=== PATIENT | female | born 1985 | race Caucasian/White ===

== ENCOUNTER 2017-01-30 08:51 | Emergency (ER) | payer MEDICAID ==
--- NOTE | 2017-01-30 09:33 | EDM.PDOC ---
[id number] Provider: 01/30/17 08:51 Source of Information: Reports: Patient, Family History Limitations: Reports: No limitations - History of Present Illness INITIAL COMMENTS - FREE TEXT/NARRATIVE: 31 y.o.w.f came to the with her mom due to anxiety. Pt has a h/o Thyroid CA, S/ P Thyroidectomy, currently on Thyroxin. Pt was seen at the [facility] yesterday for same. She called the clinic today and was asked to be seen here in the ed. Onset Date: 01/29/17 Onset Time: 07:00 Duration: Day(s):, Intermittent Location: Reports: generalized Quality: Reports: Other Severity: mild Improves with: Reports: None Worsens with: Reports: None Associated Symptoms: Reports: denies other symptoms, loss of appetite hands Pain Score (Numeric/FACES): 5 - Related Data Allergies Allergy/AdvReac Type Severity Reaction Status Date / Time No Known Allergies Allergy Verified 01/30/17 10:46 Home Meds: Home Meds LORazepam 1 mg PO TID 01/30/17 [History] Levothyroxine 150 mcg PO ACBREAKFAST 01/30/17 [History] Prazosin [Minpress] 1 mg PO DAILY 01/30/17 [History] ED ROS GENERAL - Review of Systems Review Of Systems: See Below Constitutional: Reports: no symptoms HEENT: Reports: No symptoms Respiratory: Reports: No Symptoms Cardiovascular: Reports: No symptoms, Palpitations Endocrine: Reports: no symptoms GI/Abdominal: Reports: No symptoms : Reports: no symptoms Musculoskeletal: Reports: no symptoms Skin: Reports: no symptoms Neurological: Reports: No Symptoms Psychiatric: Reports: Anxiety Hematologic/Lymphatic: Reports: no symptoms Immunologic: Reports: no symptoms ED EXAM, GENERAL - Physical Exam Exam: See Below Exam Limited By: No limitations General Appearance: alert, anxious Eye Exam: bilateral eye: normal inspection Ears: normal external exam, normal canal Ear Exam: bilateral ear: auricle normal Nose: normal inspection, normal mucosa, no blood Throat/Mouth: Normal inspection, Normal lips, Normal teeth, Normal gums, Normal oropharynx, Normal voice, No airway compromise Head: atraumatic, normocephalic Neck: normal inspection, supple, non-tender Respiratory/Chest: no respiratory distress, lungs clear, normal breath sounds, no accessory muscle use, chest non-tender Cardiovascular: no edema, no JVD, no murmur, no rub, tachycardia Peripheral Pulses: 3+: femoral (L), femoral (R) GI/Abdominal: normal bowel sounds, soft, non tender (Female) Exam: Deferred Rectal (Female) Exam: Deferred Back Exam: normal inspection, full range of motion Extremities: normal inspection, normal range of motion, non-tender, no pedal edema Neurological: alert, oriented, CN II-XII intact, normal cognition, normal gait Psychiatric: anxious Skin Exam: Warm, Dry, Intact, Normal color, No rash Lymphatic: no adenopathy Course - Vital Signs Text/Narrative:: 31 y.o.w.f came to the with her mom due to anxiety. Pt has a h/o Thyroid CA, S/ P Thyroidectomy, currently on Thyroxin. Pt was seen at the [facility] yesterday for same. She called the clinic today and was asked to be seen here in the ed. Last Recorded V/S: Last Vital Signs Temp 36.6 C 01/30/17 09:00 Pulse 98 01/30/17 10:56 Resp 18 01/30/17 10:56 BP 128/86 01/30/17 10:56 Pulse Ox 99 01/30/17 10:56 - Orders/Labs/Meds Labs: Laboratory Tests 01/30/17 01/30/17 01/30/17 Range/Units 09:30 09:30 09:30 WBC 7.4 (4.5-12.0) X10-3/uL RBC 4.53 (3.23-5.20) x10(6)uL Hgb 12.6 (11.5-15.5) g/dL Hct 37.7 (30.0-51.3) % MCV 83.3 (80-96) fL MCH 27.9 (27.7-33.6) pg MCHC 33.5 (32.2-35.4) g/dL RDW 12.9 (11.5-15.5) % Plt Count 338 (125-369) X10(3)uL MPV 7.3 L (7.4-10.4) fL Neut % (Auto) 65.3 (46-82) % Lymph % (Auto) 23.3 (13-37) % Dade % (Auto) 6.0 (4-12) % Eos % (Auto) 5 (1.0-5.0) % Baso % (Auto) 1 (0-2) % Neut # (Auto) 4.9 (1.6-8.3) # Lymph # (Auto) 1.7 (0.6-5.0) # Dade # (Auto) 0.4 (0.0-1.3) # Eos # (Auto) 0.3 (0.0-0.8) # Baso # (Auto) 0.1 (0.0-0.2) # Sodium 135 (135-145) mmol/L Potassium 3.8 (3.5-5.3) mmol/L Chloride 101 (100-110) mmol/L Carbon Dioxide 27 (23-29) mmol/L BUN 9 (5-20) mg/dL Creatinine 0.7 (0.6-1.3) mg/dL Est Cr Clr Drug Dosing TNP Estimated GFR (MDRD) > 60 (>60) BUN/Creatinine Ratio 12.9 (9-20) Glucose 104 (80-116) mg/dL Calcium 9.1 (8.6-10.2) mg/dL TSH, Ultra Sensitive 0.52 (0.4-5.5) nlU/mL Urine HCG, Qual (NEGATIVE) Urine Opiates Screen (NEGATIVE) Ur Oxycodone Screen (NEGATIVE) Ur Propoxyphene Screen (NEGATIVE) Ur Barbituates Screen (NEGATIVE) Ur Tricyclics Screen (NEGATIVE) Ur Phencyclidine Scrn (NEGATIVE) Ur Amphetamine Screen (NEGATIVE) Urine MDMA Screen (NEGATIVE) U Benzodiazepines Scrn (NEGATIVE) U Cocaine Metab Screen (NEGATIVE) U Marijuana (THC) Screen (NEGATIVE) 01/30/17 01/30/17 Range/Units 10:01 10:01 WBC (4.5-12.0) X10-3/uL RBC (3.23-5.20) x10(6)uL Hgb (11.5-15.5) g/dL Hct (30.0-51.3) % MCV (80-96) fL MCH (27.7-33.6) pg MCHC (32.2-35.4) g/dL RDW (11.5-15.5) % Plt Count (125-369) X10(3)uL MPV (7.4-10.4) fL Neut % (Auto) (46-82) % Lymph % (Auto) (13-37) % Dade % (Auto) (4-12) % Eos % (Auto) (1.0-5.0) % Baso % (Auto) (0-2) % Neut # (Auto) (1.6-8.3) # Lymph # (Auto) (0.6-5.0) # Dade # (Auto) (0.0-1.3) # Eos # (Auto) (0.0-0.8) # Baso # (Auto) (0.0-0.2) # Sodium (135-145) mmol/L Potassium (3.5-5.3) mmol/L Chloride (100-110) mmol/L Carbon Dioxide (23-29) mmol/L BUN (5-20) mg/dL Creatinine (0.6-1.3) mg/dL Est Cr Clr Drug Dosing Estimated GFR (MDRD) (>60) BUN/Creatinine Ratio (9-20) Glucose (80-116) mg/dL Calcium (8.6-10.2) mg/dL TSH, Ultra Sensitive (0.4-5.5) nlU/mL Urine HCG, Qual Negative (NEGATIVE) Urine Opiates Screen Negative (NEGATIVE) Ur Oxycodone Screen Negative (NEGATIVE) Ur Propoxyphene Screen Negative (NEGATIVE) Ur Barbituates Screen Negative (NEGATIVE) Ur Tricyclics Screen Negative (NEGATIVE) Ur Phencyclidine Scrn Negative (NEGATIVE) Ur Amphetamine Screen Positive H (NEGATIVE) Urine MDMA Screen Negative (NEGATIVE) U Benzodiazepines Scrn Negative (NEGATIVE) U Cocaine Metab Screen Negative (NEGATIVE) U Marijuana (THC) Screen Negative (NEGATIVE) Departure - Departure Time of Disposition: 11:04 Disposition: Home, Self-Care 01 Condition: good Clinical Impression: Amphetamine abuse, Anxiety Referrals: Raffy Cutler MD [Primary Care Provider] - Forms: ED Department Discharge Additional Instructions: please refrain from any drugs, please consult your PMD/winding 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
[2017-01-30 19:16] VITALS: BP 128/86
== END 2017-01-30 11:20 | disposition home or self-care (01) ==
LOC: FB.ED 08:51
DX: F41.9 Anxiety disorder, unspecified (principal); F15.10 Other stimulant abuse, uncomplicated
CPT/HCPCS: 36415; 80048; 80305; 81025; 84443; 85025; 99283

== ENCOUNTER 2017-11-27 10:11 | Emergency (ER) | payer MEDICAID, OTHER, SELFPAY ==
[2017-11-27 10:57] VITALS: BP 132/75
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
== END 2017-11-27 11:14 | disposition left against medical advice (07) ==
LOC: FB.ED 10:11
DX: Z53.21 Procedure and treatment not carried out due to patient leaving prior to being seen by health care provider (principal)
CPT/HCPCS: 99282

== ENCOUNTER 2018-04-11 10:05 | Emergency (ER) | payer MEDICAID ==
[2018-04-11 13:27] VITALS: BP 116/62
--- NOTE | 2018-04-11 16:44 | ER ---
DATE SEEN: 04/11/2018 TIME SEEN: The patient was seen at 1015 hours in the morning. /[id number] LEO/KRYSTINA
--- NOTE | 2018-04-12 11:42 | CR ---
INDICATION: Dysrhythmia, thyroid cancer extirpation. CHEST: PA and lateral views of the chest revealed the heart to be normal in size and shape. Mediastinum was unremarkable. A mild dextroconcave scoliosis of the lower thoracic spine is noted. An active infiltrate or effusion was not identified. No findings to suggest metastatic disease were identified. IMPRESSION: No acute process. No evidence of metastatic disease. MTDD
--- NOTE | 2018-04-14 10:57 | ER ---
DATE SEEN: 04/11/2018 HISTORY OF PRESENT ILLNESS: This 32-year-old 1, para 1 single woman, comes in with her mother because she has had a history of, on and off, hot and cold flashes. She is status post previous thyroidectomy for thyroid cancer, is hypothyroid, currently on thyroid medicine. Last menstrual period was 1 year ago. She is on a Mirena ring. She has been slated to go to care home for 5 years because of car thefts and drug abuse and selling. She will see a tug boat engineer tomorrow in the courtroom. She has become depressed. She is not suicidal. She does not feel helpless and hopeless, but concentration is poor. She is depressed, sad, and weight has not changed. She has difficulty sleeping and has anxiety and had a diagnosis of amphetamine abuse, 01/30/2017. As of October, she was homeless because of her street life and excessive drug abuse, including the crimes of car theft and selling drugs, and she was apprehended by the police. REVIEW OF SYSTEMS: SKIN: She has mild photosensitivity. HEENT: Otherwise negative. She has mild sore throat. No cough. She smokes. She notes she has a bulging neck disk. Her mother and patient note she has ups and downs in her voice, increases in tempo and excitement and also depression, laid back and not very communicative and voice changes. She has mild shortness of breath. : She has no history of STDs. She has been tested for this. MUSCULOSKELETAL: She has mild knee discomfort. Mother has rheumatoid arthritis. The patient has been tested negative. FAMILY HISTORY: Father had leukemia, at age 37. One sister is alive and well. Paternal grandfather is alive and well. Paternal grandmother has schizophrenia and delusions, hallucinations. Paternal aunt has psychiatric illness. Maternal grandmother has dementia and Alzheimer's. Paternal grandfather has heart disease. Regarding the [place] [facility] SIGE CAPS depression scale, S: Patient is not suicidal; I: Patient does not feel helpless and hopeless; G: Guilt, sometimes off and on; C: Concentration is abnormal; A: Anxiety is increased; P: Psychomotor increase or decrease in activity. The patient notes it is variable. She has panic disorder, posttraumatic stress disorder, and has depression, sometimes becomes manic, sometimes depressive with increased activity and decreased activity, it is variable, often being in the same day, and sad, yes. Homicidal, no. Does not see delusions. Does not see or hear things that do not exist - does not have hallucinations. SOCIAL HISTORY: The patient smokes. She does not drink alcohol. No longer uses amphetamines as of October,. She feels hot and cold. Does not have sweating spells but has variability in her animation throughout the day. CURRENT MEDICATIONS: Levothyroxine 150 mcg daily per prescription by Dr. Banks, wall covering contractor, at [facility]. ALLERGIES: None. PHYSICAL EXAMINATION: VITAL SIGNS: Pulse is 70 and regular, blood pressure 116/74, respirations 17, oxygen saturation 100% on room air, temperature 36.8 degrees centigrade. Weight is 58.96 kg, which is 21.21 kg/sq. m. BMI. CONSTITUTION: Patient is somewhat wary, anxious, quiet, soft-spoken, and wary with her eyes. Somewhat mistrusting or uncertain. HEENT: PERRLA intact. Eyegrounds normal appearance. Pharynx without abnormality. Teeth are in good condition. Apparently, she has had several teeth removed in the past. No thyromegaly in the neck. I do not feel any masses. I do not feel cervical adenopathy. I do not feel supraclavicular adenopathy. LUNGS: Clear without rales, rhonchi, or wheezes. HEART: S1, S2. No murmur. No irregular rate or rhythm. ABDOMEN: Soft. No guarding. No abdominal discomfort. Bowel sounds normal. EXTREMITIES: Normal. No evidence for new erythema on the forearms. Nail cap refill is good. NEUROLOGICAL: Oriented x3. Gait appropriate and muscle strength in upper and lower extremities good. WORKING DIAGNOSES: 1. Rule out chemical abuse. 2. Rule out manic depressionanic pressantin tempor . 3. Rule out thyroid abnormality, either subacute thyroiditis because she has swings of being animated, not animated, increased activity, decreased activity, and voice changes, and heart rate changes. Currently, she is being followed by Dr. Banks and has had a thyroid scan in the past. One thyroid scan was abnormal, one followup scan was normal, so it is indeterminate if there is a need for another thyroid scan (radioactive thyroid scan). Today's TSH is low. It could be low to secondary reasons. a. It could be something like overactive pituitary. b. It could be low secondary to taking high doses of Synthroid. c. It could be low because she has increased free T4 and T3. Those tests are pending. 4. Also she has the stress of depression and anxiety of her care home sentence facing her for 5 years, when she sees the tug boat engineer tomorrow, so she may be depressed, not suicidal today. 5. She has a loving mother, supportive of her. 6. She has posttraumatic stress depression syndrome. 7. Chest x-ray is normal, except for mild hyperaeration. Hyperaeration almost goes down to 11th ribs with inspiration. This may be useful inspiration, so it may not be abnormal, as she has curved diaphragms that are not flattened, but there is mild hyperaeration, reflects possibly some chronic obstructive pulmonary disease. Heart size is small. 8. It is possible the patient may be having adrenal abnormalities because of thyroid. There is no suggestion of CREST. 9. Mother has rheumatoid arthritis. Patient does not have rheumatoid arthritis. DIAGNOSIS: 1) Bipolar depression 2) anxiety 3) PTSD HX Anxiety secondary to facing tug boat engineer to be sentenced 5 he year in care home. The patient to have a 1600 hours cortisol and also free T4 and T3. If these are abnormal, then discuss with Dr. Banks. If I am not here for the results of these tests, give them to Dr. Pace to follow up, (if the tests are send outs). No medications were prescribed for the patient presently. She felt comfortable with this process and is leading the discussion about the stressors and the perils that she has experienced in her life. /[id number] LEO/KRYSTINA LOPEZ
== END 2018-04-11 13:26 | disposition home or self-care (01) ==
LOC: FB.ED 10:05
DX: F31.9 Bipolar disorder, unspecified (principal); F41.9 Anxiety disorder, unspecified; F43.10 Post-traumatic stress disorder, unspecified; Z79.899 Other long term (current) drug therapy
CPT/HCPCS: 36415; 71046; 80053; 80305; 81001; 81025; 82533; 83605; 84439; 84443; 84481; 84484; 85025; 93005; 99284

== ENCOUNTER 2018-07-06 13:04 | Emergency (ER) | payer MEDICAID ==
[2018-07-06 14:11] LABS: ACETAMINOPHEN < 2 ug/mL (10-30)
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
[2018-07-06] MEDS: LORazepam 2 MG/ML SDV IM ONE (15:05)
[2018-07-06 16:15] VITALS: BP 114/81
== END 2018-07-06 15:42 | disposition home or self-care (01) ==
LOC: FB.ED 13:04
DX: F41.9 Anxiety disorder, unspecified (principal); F17.210 Nicotine dependence, cigarettes, uncomplicated; Z79.899 Other long term (current) drug therapy
CPT/HCPCS: 36415; 80053; 80305; 84443; 84702; 85025; 96374; 99283; G0480; J2060

== ENCOUNTER 2018-07-08 13:18 | Emergency (ER) | payer MEDICAID ==
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
[2018-07-08 21:59] VITALS: BP 124/81
== END 2018-07-09 13:05 ==
LOC: FB.ED 13:18
DX: F22 Delusional disorders (principal); E03.9 Hypothyroidism, unspecified; Z79.899 Other long term (current) drug therapy; Z59.0 Homelessness
CPT/HCPCS: 36415; 80048; 80305-QW; 84443; 85025; 99285; G0480

== ENCOUNTER 2019-05-29 10:49 | Emergency (ER) | payer MEDICAID ==
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
[2019-05-29 12:24] VITALS: BP 110/70; PULSE 67
== END 2019-05-29 11:50 | disposition home or self-care (01) ==
LOC: FB.ED 10:49
DX: J02.9 Acute pharyngitis, unspecified (principal); E03.9 Hypothyroidism, unspecified; Z79.899 Other long term (current) drug therapy
CPT/HCPCS: 99282

== ENCOUNTER 2023-05-20 06:12 | Day surgery (SDC) | payer OTHER, MEDICAID ==
[2023-05-20] MEDS ORDERED: Midazolam 1 MG/ML 2 ML SDV IV ONE (06:13)
[2023-05-20] MEDS ORDERED: Propofol 200 MG/20 ML SDV IV ONE (06:13)
[2023-05-20] MEDS ORDERED: Lidocaine 2% 5 ML SDV IV ONE (06:13)
[2023-05-20] MEDS ORDERED: Sodium Chloride 0.9% 10 ML Syringe FLUSH PRN (06:15)
[2023-05-20] MEDS ORDERED: Lactated Ringers 1,000 ML IV SCH (06:15)
[2023-05-20] MEDS ORDERED: Simethicone Drops 40 MG/0.6 ML 30 ML Bottle PO ONE (07:42)
[2023-05-20 09:00] VITALS: BP 103/74; PULSE 68
[2023-05-22 00:12] LABS: ADENOVIRUS F 40/41 Not Detected (Not Detected); ASTROVIRUS Not Detected (Not Detected); C DIFFICILE TOXIN A/B Not Detected (Not Detected); CAMPYLOBACTER Not Detected (Not Detected); CRYPTOSPORIDIUM Not Detected (Not Detected); CYCLOSPORA CAYETANENSIS Not Detected (Not Detected); ENTAMOEBA HISTOLYTICA Not Detected (Not Detected); ENTEROAGGREGATIVE E COLI Not Detected (Not Detected); ENTEROPATHOGENIC E COLI Not Detected (Not Detected); ENTEROTOXIGENIC E COLI Not Detected (Not Detected); GIARDIA LAMBLIA Not Detected (Not Detected); NOROVIRUS GI/GII Not Detected (Not Detected); PLESIOMONAS SHIGELLOIDES Not Detected (Not Detected); ROTAVIRUS A Not Detected (Not Detected); SALMONELLA Not Detected (Not Detected); SAPOVIRUS Not Detected (Not Detected); SHIGA-TOXIN-PRODUCING E COLI Not Detected (Not Detected); SHIGELLA/ENTEROINVASIVE E COLI Not Detected (Not Detected); VIBRIO Not Detected (Not Detected); VIBRIO CHOLERAE Not Detected (Not Detected); YERSINIA ENTEROCOLITICA Not Detected (Not Detected)
== END 2023-05-20 09:08 | disposition home or self-care (01) ==
LOC: FB.SDS 06:12
PROVIDERS: ATTEND Surgery
DX: K52.9 Noninfective gastroenteritis and colitis, unspecified (principal); K63.89 Other specified diseases of intestine; R63.4 Abnormal weight loss; F41.1 Generalized anxiety disorder; F41.0 Panic disorder [episodic paroxysmal anxiety]; G43.909 Migraine, unspecified, not intractable, without status migrainosus; Z79.890 Hormone replacement therapy; Z79.899 Other long term (current) drug therapy; Z88.1 Allergy status to other antibiotic agents; Z87.891 Personal history of nicotine dependence; F43.10 Post-traumatic stress disorder, unspecified; E03.9 Hypothyroidism, unspecified; Z88.8 Allergy status to other drugs, medicaments and biological substances
CPT/HCPCS: 00811; 45380; 87507; 88305; 89055; A9270; J2250; J2704; J7120

== ENCOUNTER 2023-10-24 10:51 | Emergency (ER) | payer OTHER, MEDICAID ==
[2023-10-24] MEDS ORDERED: Ciprofloxacin 500 MG Tab PO ONE (10:52)
[2023-10-24] MEDS ORDERED: Sodium Chloride 0.9% 10 ML Syringe FLUSH PRN (11:23)
[2023-10-24] MEDS ORDERED: Ondansetron 4 MG/2 ML SDV IVPUSH ONE (11:25)
[2023-10-24] MEDS ORDERED: Sodium Chloride 0.9% 1,000 ML IV SCH (11:30)
[2023-10-24 11:32] LABS: BASOPHILS PERCENT AUTO 0.2 % (0.2-1.5); EOSINOPHILS ABSOLUTE AUTO 0.1 x10-3/uL (0.0-0.8); EOSINOPHILS PERCENT AUTO 0.9 % (0.6-8.1); HEMATOCRIT 36.7 % (34.2-48.2); HEMOGLOBIN 12.3 g/dL (11.4-15.5); LYMPHOCYTES ABSOLUTE AUTO 0.7 x10-3/uL (1.0-4.4); LYMPHOCYTES PERCENT AUTO 7.7 % (18.4-52.1); MEAN CORPUSCULAR HEMOGLOBIN 29.1 pg (23.9-33.9); MEAN CORPUSCULAR HGB CONC 33.6 g/dL (31.9-34.8); MEAN CORPUSCULAR VOLUME 86.8 fL (76.7-100.5); MEAN PLATELET VOLUME 7.9 fL (7.1-12.4); MONOCYTES ABSOLUTE AUTO 0.9 x10-3/uL (0.3-1.0); MONOCYTES PERCENT AUTO 9.3 % (4.4-15.7); NEUTROPHILS ABSOLUTE AUTO 7.7 x10-3/uL (1.5-6.3); NEUTROPHILS PERCENT AUTO 81.9 % (30.8-76.2); PLATELET COUNT,PLT 275 x10(3)uL (151-488); RED BLOOD CELL COUNT 4.23 x10(6)uL (3.60-5.20); RED CELL DISTRIBUTION WIDTH 12.8 % (12.3-16.5); WHITE BLOOD CELL COUNT,WBC 9.5 x10-3/uL (3.0-10.3)
[2023-10-24 11:36] LABS: BLOOD UREA NITROGEN,BUN 7 mg/dL (7-18); BUN/CREATININE RATIO 7.8 (9-20); CALCIUM 9.2 mg/dL (8.6-10.2); CARBON DIOXIDE,CO2 28 mmol/L (21-32); CHLORIDE,CL 98 mmol/L (100-110); CREATININE 0.9 mg/dL (0.55-1.02); ESTIMATED GFR 84 mL/min (>60); GLUCOSE RANDOM 104 mg/dL (80-116); POTASSIUM,K 3.5 mmol/L (3.5-5.3); SODIUM,NA 136 mmol/L (135-145)
[2023-10-24 11:41] LABS: A/G RATIO 1.1; ALANINE AMINOTRANSFERASE,ALT 26 U/L (12-36); ALBUMIN 4.1 g/dL (3.5-5.2); ALKALINE PHOSPHATASE 54 IU/L (56-112); AMYLASE 43 U/L (25-115); ASPARTATE AMNIOTRANSFERASE,AST 16 IU/L (5-25); BILIRUBIN TOTAL 0.7 mg/dL (0.1-1.3); PROTEIN TOTAL,TP 7.7 g/dL (6.0-8.0)
[2023-10-24] MEDS ORDERED: Iopamidol 755 Mg/ML 100 ML Bottle IV SCH (12:00)
[2023-10-24 12:06] LABS: BILIRUBIN,URINE NEGATIVE (NEGATIVE); GLUCOSE,URINE NORMAL (NORMAL); KETONES,URINE NEGATIVE (NEGATIVE); LEUKOCYTE ESTERASE,URINE LARGE (NEGATIVE); NITRITE,URINE NEGATIVE (NEGATIVE); OCCULT BLOOD,URINE TRACE (NEGATIVE); PROTEIN,URINE NEGATIVE (NEGATIVE); UROBILINOGEN,URINE NORMAL (NEGATIVE)
[2023-10-24 12:07] LABS: APPEARANCE,URINE CLEAR (CLEAR); BACTERIA,URINE MODERATE (NS); COLOR,URINE YELLOW (YELLOW); RBC,URINE 0-5 (0-5); SQUAMOUS EPITHELIAL CELLS,UR FEW (NS,R,O); WBC,URINE 20-30 (0-5)
[2023-10-24] MEDS ORDERED: Ketorolac 30 MG/ML SDV IVPUSH ONE (12:08)
[2023-10-24 13:41] VITALS: BP 113/72; PULSE 104
== END 2023-10-24 13:40 | disposition home or self-care (01) ==
LOC: FB.ED 10:51
DX: N39.0 Urinary tract infection, site not specified (principal); E03.9 Hypothyroidism, unspecified; Z79.899 Other long term (current) drug therapy; Z88.2 Allergy status to sulfonamides
CPT/HCPCS: 74177; 80053; 81001; 82150; 83690; 85025; 87086; 87088; 87186; 96361; 96374; 96375; 99284; J1885; J2405; J3490; J7030; Q9967; A9270-GY